=== PATIENT | male | born 1960 ===

== ENCOUNTER 2016-11-06 17:18 | Emergency (ER) | payer MEDICARE ==
[2016-11-06 17:18] VITALS: BMI 33.2
[2016-11-06 17:22] VITALS: BP 162/83; PULSE 59; RESP 20; TEMP 98.1; O2SAT 99
--- NOTE | 2016-11-06 18:33 | C.PDOC ---
History Of Present Illness 55 y/o male presents to the ED for evaluation of vague symptoms for 2 weeks, including nasal congestion, sore throat, and occasional nausea. Patient denies fevers, vomiting, or constipation. Note that the patient is on an extensive narcotics regimen. [facility], patient has received 11 prescriptions from 9 prescribers in the past year, mostly for Percocet. Time Seen by Provider: 11/06/16 18:21 Chief Complaint (Nursing): GI Problem History Per: Patient History/Exam Limitations: no limitations Onset/Duration Of Symptoms: Days (14), Persistent Current Symptoms Are (Timing): Still Present Location Of Pain: Throat Sick Contacts (Context): None Associated Symptoms: Sore Throat, Nasal Congestion, Nausea Ear Symptoms: Bilateral: None Recent travel outside of the [place]: No Past Medical History Reviewed: Historical Data, Nursing Documentation, Vital Signs Vital Signs: Last Vital Signs Temp 98.1 F 11/06/16 17:20 Pulse 59 L 11/06/16 17:20 Resp 20 11/06/16 17:20 BP 162/83 H 11/06/16 17:20 Pulse Ox 99 11/06/16 18:34 - Medical History PMH: Anxiety, Arthritis, Asthma, Atrial Fibrillation, Back Problems, CHF, COPD, Depression, HTN, Seizures (withdrawl seizures), TIA Surgical History: CABG, Cholecystectomy - [facility] Procedures LINEAR REP LID LACER (01/07/13) TETANUS TOXOID ADMINIST (01/07/13) Family History: States: Unknown Family Hx - Social History Hx Tobacco Use: No Hx Alcohol Use: Yes Hx Substance Use: No - Immunization History Hx Tetanus Toxoid Vaccination: Yes (last year) Hx Influenza Vaccination: Yes Hx Pneumococcal Vaccination: Yes Review Of Systems Except As Marked, All Systems Reviewed And Found Negative. Constitutional: Negative for: Fever ENT: Positive for: Nose Congestion, Throat Pain Gastrointestinal: Positive for: Nausea (occasional). Negative for: Vomiting, Constipation Physical Exam - Physical Exam Appears: Non-toxic, No Acute Distress Skin: Normal Color, Warm, Dry Head: Atraumatic, Normacephalic Eye(s): bilateral: Normal Inspection, PERRL Ear(s): Bilateral: Normal Nose: Normal Oral Mucosa: Moist Throat: Normal, No Erythema, No Exudate Neck: Normal ROM, Supple Chest: Symmetrical Cardiovascular: Rhythm Regular Respiratory: Normal Breath Sounds, No Rales, No Rhonchi, No Wheezing Gastrointestinal/Abdominal: Normal Exam, Soft, No Tenderness, Other (obese) Back: Normal Inspection, No CVA Tenderness Extremity: Normal ROM, No Swelling Neurological/Psych: Oriented x3, Normal Speech, Normal Cognition ED Course And Treatment O2 Sat by Pulse Oximetry: 99 (ra) Pulse Ox Interpretation: Normal Medical Decision Making Medical Decision Making: vague s/s of viral syndrome, but normal exam today Extensive percocet regimen, claims he has not run out of narcotic meds @ home, but has not taken any today. [employer] reviewed: 11 prescriptions from 9 prescribers in past year Pt defers w/u with informed consent. Disposition Doctor Will See Patient In The: Office Counseled Patient/Family Regarding: Studies Performed, Diagnosis - Disposition Referrals: [facility] [Outside] [facility] [Outside] Disposition: HOME/ ROUTINE Disposition Time: 18:33 Condition: GOOD Additional Instructions: continue normal diet and hold off on alcohol (especially since you are taking narcotic pain relievers) and follow-up in our outpatient Clinic as needed. Forms: General Discharge Instructions - Clinical Impression Clinical Impression: Not feeling great - Scribe Statement The provider has reviewed the documentation as recorded by the Scribe (Edwige Manzanares) Provider Attestation: All medical record entries made by the Scribe were at my direction and personally dictated by me. I have reviewed the chart and agree that the record accurately reflects my personal performance of the history, physical exam, medical decision making, and the department course for this patient. I have also personally directed, reviewed, and agree with the discharge instructions and disposition.
== END 2016-11-06 18:44 | disposition home or self-care (01) ==
LOC: C.ER 17:18
DX: B34.9 Viral infection, unspecified (principal); I11.0 Hypertensive heart disease with heart failure; I50.9 Heart failure, unspecified; F41.9 Anxiety disorder, unspecified

== ENCOUNTER 2016-12-16 17:29 | Emergency (ER) | payer MEDICARE ==
[2016-12-16 17:57] VITALS: BMI 31.4
[2016-12-16 18:03] VITALS: TEMP 98.2; O2SAT 98
[2016-12-16 19:12] LABS: URINE BILIRUBIN NEGATIVE (NEGATIVE); URINE BLOOD NEGATIVE (NEGATIVE); URINE COLOR Yellow (YELLOW); URINE GLUCOSE (UA) NORMAL (Normal); URINE KETONE NEGATIVE (NEGATIVE); URINE LEUKOCYTE ESTERASE NEG Leu/uL (Negative); URINE PROTEIN NEGATIVE (NEGATIVE); URINE UROBILINOGEN NORMAL mg/dL (0.2-1.0); WBC URINE < 1 /hpf (0-5)
--- NOTE | 2016-12-16 19:50 | C.PDOC ---
History Of Present Illness 56 y/o male presents to the ED with complains of chronic back pain exacerbation. Patient went to therapy and received epidural injection, trigger point injections and since yesterday, back pain radiates to right flank and groin. Pt had therapy today, was told he may have a muscle spasm. Pt also states urination has been more frequent. Denies fever, chills, weakness, numbness or any other complaints. Time Seen by Provider: 12/16/16 18:10 Chief Complaint (Nursing): Back Pain History Per: Patient History/Exam Limitations: no limitations Onset/Duration Of Symptoms: Hrs Current Symptoms Are (Timing): Still Present Quality Of Discomfort: "Pain" Severity: Moderate Previous Symptoms: Back Pain Associated Symptoms: None Recent travel outside of the [place]: No Past Medical History Reviewed: Historical Data, Nursing Documentation, Vital Signs Vital Signs: Last Vital Signs Temp 98.2 F 12/16/16 17:57 Pulse 85 12/16/16 20:41 Resp 18 12/16/16 20:41 BP 124/75 12/16/16 20:41 Pulse Ox 98 12/16/16 20:41 - Medical History PMH: Anxiety, Arthritis, Asthma, Atrial Fibrillation, Back Problems, CHF, COPD, Depression, HTN, Seizures (withdrawl seizures), TIA Surgical History: CABG, Cholecystectomy - [facility] Procedures LINEAR REP LID LACER (01/07/13) TETANUS TOXOID ADMINIST (01/07/13) Family History: States: Unknown Family Hx - Social History Hx Tobacco Use: No Hx Alcohol Use: Yes Hx Substance Use: No - Immunization History Hx Tetanus Toxoid Vaccination: Yes (last year) Hx Influenza Vaccination: Yes Hx Pneumococcal Vaccination: Yes Review Of Systems Except As Marked, All Systems Reviewed And Found Negative. Constitutional: Negative for: Fever, Chills Genitourinary: Positive for: Frequency Musculoskeletal: Positive for: Back Pain (radiating to right flank and groin) Neurological: Negative for: Weakness, Numbness Physical Exam - Physical Exam Appears: Non-toxic, No Acute Distress Skin: Warm, Dry, No Rash Head: Atraumatic, Normacephalic Chest: Symmetrical Cardiovascular: Rhythm Regular, No Murmur Respiratory: Normal Breath Sounds, No Rales, No Rhonchi, No Wheezing Gastrointestinal/Abdominal: Soft, No Tenderness, No Distention Back: Other (right flank tenderness) Extremity: Bilateral: Atraumatic Neurological/Psych: Oriented x3, Normal Speech, Normal Cognition, Normal Motor, Normal Sensation ED Course And Treatment O2 Sat by Pulse Oximetry: 98 (room air) Pulse Ox Interpretation: Normal - CT Scan/US CT abdomen Other Rad Studies (CT/US): Read By Radiologist, Radiology Report Reviewed CT/US Interpretation: EXAM: CT Abdomen and Pelvis Without Intravenous Contrast. CLINICAL HISTORY: 56 years old, male; Pain; Abdominal pain; Flank; Right lower quadrant (rlq); Additional info: Right. flank pain. TECHNIQUE: Axial computed tomography images of the abdomen and pelvis without intravenous contrast. This. CT exam was performed using one or more of the following dose reduction techniques: automated. exposure control, adjustment of the mA and/or kV according to patient size, and/or use of iterative. reconstruction technique. Coronal and sagittal reformatted images were created and reviewed. EXAM DATE/TIME: Exam ordered 12/16/2016 6:57 PM. COMPARISON: No relevant prior studies available. FINDINGS: Lower thorax: There is a small hiatal hernia. ABDOMEN: Liver: Unremarkable. Gallbladder and bile ducts: Surgical clips are seen in the gallbladder fossa. The gallbladder is. absent. No ductal dilation. Pancreas: Unremarkable. No ductal dilation. Spleen: Unremarkable. No splenomegaly. Adrenals: Unremarkable. No mass. Kidneys and ureters: Unremarkable. No obstructing stones. No hydronephrosis. Stomach and bowel: There are scattered colonic diverticula. No obstruction. No mucosal. thickening. Appendix: No findings to suggest acute appendicitis. PELVIS: Bladder: There is mild bladder wall thickening. No stones. Reproductive: The prostate measures 3.4 x 4 x 3.6 cm. ABDOMEN and PELVIS: Intraperitoneal space : Unremarkable. No free air. No significant fluid collection. Bones/joints: There is a healed rib fracture of the left posterior 10th rib. There is a grade 1. spondylolisthesis at L5-S1 with 7 mm of retrolisthesis of S1 with respect to L5. There is narrowing of. the intervening disc space. Vacuum disc phenomenon is noted at L5-S1. There is partial fusion of the. L34 vertebral bodies Mild anterior compression deformity is noted at T12. 3 healed fractures are. noted of the right ninth, 10th and 12th ribs No dislocation. Soft tissues : Unremarkable. Vasculature: Unremarkable. No abdominal aortic aneurysm. Lymph nodes: Unremarkable. No enlarged lymph nodes. IMPRESSION: 1. No acute findings. 2. Small hiatal hernia. 3. Scattered colonic diverticula. 4. Bilateral healed rib fractures. 5. Grade 1 spondylolisthesis at L5-S1. Thank you for allowing us to participate in the care of your patient. Dictated and Authenticated by: Jenny Pereira MD. 12/16/2016 8:05 PM Eastern Time ([place] & [place]) Progress Note: Plan: CT abd, UA, toradol, valium. On reassessment, patient is resting comfortably, with improvement of back pain. Patient remains afebrile, with no bony tenderness, extremity numbness or weakness, or abdominal pain. Patient is ambulatory in the emergency department with no signs of discomfort. Patient was advised to follow up with physician/clinic in 1-2 days. Disposition - Disposition Disposition: HOME/ ROUTINE Disposition Time: 20:34 Condition: STABLE Additional Instructions: Follow up with your PMD and sales recruitment specialist within 1-2 days. Return to ED if feel worse. Prescriptions: Lidocaine 5% [Lidoderm] 1 patch TP DAILY #30 patch diaZEpam [Valium] 2 mg PO TID #15 tab Instructions: Flank Pain (ED) - Clinical Impression Clinical Impression: Flank pain - PA / [employer] SUPERVISOR / Resident Statement MD/DO has reviewed & agrees with the documentation as recorded. - Scribe Statement The provider has reviewed the documentation as recorded by the Raulito Knapp All medical record entries made by the Raulito were at my direction and personally dictated by me. I have reviewed the chart and agree that the record accurately reflects my personal performance of the history, physical exam, medical decision making, and the department course for this patient. I have also personally directed, reviewed, and agree with the discharge instructions and disposition.
[2016-12-16 20:41] VITALS: BP 124/75; PULSE 85; RESP 18
--- NOTE | 2016-12-17 10:53 | CT ---
PROCEDURE: CT Abdomen and Pelvis without intravenous or oral contrast HISTORY: right flank pain COMPARISON: None. TECHNIQUE: Technique Contiguous axial images of the abdomen and pelvis without intravenous or oral contrast. Radiation dose: Total exam DLP = 513.04 mGy-cm. This CT exam was performed using one or more of the following dose reduction techniques: Automated exposure control, adjustment of the mA and/or kV according to patient size, and/or use of iterative reconstruction technique. FINDINGS: LOWER THORAX: Unremarkable. LIVER: Unremarkable. GALLBLADDER AND BILE DUCTS: Status post cholecystectomy. No abnormality is seen in the gallbladder fossa. PANCREAS: Unremarkable. No ductal dilatation. SPLEEN: Unremarkable. No splenomegaly. ADRENALS: Unremarkable. KIDNEYS AND URETERS: Unremarkable. No hydronephrosis. BLADDER: Diffuse bladder wall thickening and and specific finding. Cystitis can assume this appearance. REPRODUCTIVE: Unremarkable. APPENDIX: Unremarkable. Normal appendix. STOMACH AND BOWEL: Unremarkable. No obstruction. No gross mural thickening. PERITONEUM: Unremarkable. No significant fluid collection. No free air. LYMPH NODES: Unremarkable. No enlarged lymph nodes. VASCULATURE: Unremarkable. No aortic aneurysm. BONES: Grade 1 anterolisthesis L5-S1. Old healed posterior right rib fractures. OTHER FINDINGS: None . IMPRESSION: No evidence of renal calculus disease or obstructive uropathy. Diffuse bladder wall thickening. Additional benign and/or incidental findings described above. Concordant results (preliminary interpretation) provided by [facility]. Procedure Completed: 19:36. Preliminary ([facility]) Report: Dictated and Authenticated: 20:05. Final Interpretation: 07:28. December 16, 2016.
== END 2016-12-16 20:42 | disposition home or self-care (01) ==
LOC: C.ER 17:29
DX: R10.9 Unspecified abdominal pain (principal); I48.91 Unspecified atrial fibrillation; I10 Essential (primary) hypertension
CPT/HCPCS: 74176; 81001; 96372; 99284; J1885

== ENCOUNTER 2017-01-19 20:31 | Emergency (ER) | payer MEDICARE ==
[2017-01-19 20:31] VITALS: BMI 31.4
--- NOTE | 2017-01-19 23:40 | C.PDOC ---
History Of Present Illness Pt was BIBEMs due to public alcohol intoxication. Time Seen by Provider: 01/19/17 21:00 Chief Complaint (Nursing): Substance Abuse History Per: Patient, EMS History/Exam Limitations: intoxication Onset/Duration Of Symptoms: Unknown (tonight) Current Symptoms Are (Timing): Still Present Suicide/Self Injury Attempted (Context): None Modifying Factor(s): Alcohol Severity: Severe Associated Symptoms: denies: Suicidal Thoughts, Suicidal Plan Additional History Per: Prior Records Past Medical History Reviewed: Historical Data, Nursing Documentation, Vital Signs Vital Signs: Last Vital Signs Temp 97.8 F 01/20/17 00:30 Pulse 103 H 01/20/17 00:30 Resp 20 01/20/17 00:30 BP 143/84 01/20/17 00:30 Pulse Ox 95 01/20/17 00:30 - Medical History PMH: Anxiety, Arthritis, Asthma, Atrial Fibrillation, Back Problems, CHF, COPD, Depression, HTN, Seizures (withdrawl seizures), TIA Surgical History: Cholecystectomy - [facility] Procedures LINEAR REP LID LACER (01/07/13) TETANUS TOXOID ADMINIST (01/07/13) Family History: States: Unknown Family Hx - Social History Hx Tobacco Use: No Hx Alcohol Use: Yes Hx Substance Use: No - Immunization History Hx Tetanus Toxoid Vaccination: Yes (last year) Hx Influenza Vaccination: Yes Hx Pneumococcal Vaccination: Yes Review Of Systems Review Of Systems: ROS cannot be obtained secondary to pt's inabilty to answer questions. Physical Exam - Physical Exam Appears: Agitated, Other (AOB, intoxicated) Skin: Normal Color, Warm, Dry, No Rash Head: No Swelling Eye(s): bilateral: PERRL, EOMI Neck: Normal ROM, No Midline Cervical Tenderness, No Step Off Deformity, Supple Cardiovascular: Rhythm Regular Respiratory: Normal Breath Sounds, No Accessory Muscle Use Gastrointestinal/Abdominal: Soft, No Tenderness Extremity: Normal ROM, No Deformity Neurological/Psych: Inappropriate Response To Command, Other (Moving all extremities) Gait: Unable To Assess ED Course And Treatment O2 Sat by Pulse Oximetry: 100 Pulse Ox Interpretation: Normal Disposition - Disposition Disposition Time: 01:00 Condition: STABLE - Clinical Impression Clinical Impression: Alcohol intoxication Physician Patient Turnover Patient Signed Over To: Earlene Reveles Handoff Comments: to reassess pt once sober.
[2017-01-20 04:43] VITALS: BP 137/86; PULSE 97; RESP 18; TEMP 98; O2SAT 96
== END 2017-01-20 04:43 | disposition home or self-care (01) ==
LOC: C.ER 20:31
DX: F10.129 Alcohol abuse with intoxication, unspecified (principal)

== ENCOUNTER 2018-07-16 00:37 | Emergency (ER) | payer MEDICARE ==
[2018-07-16 00:38] VITALS: BMI 31.4
[2018-07-16] MEDS ORDERED: Epinephrine /Lidocaine HCL 1:100,000/2% 30 ml INJ STA (00:58)
[2018-07-16] MEDS ORDERED: Tdap Vaccine 0.5 ml Vial (10-64 yrs) IM ONE (00:58)
[2018-07-16] MEDS ORDERED: Tetanus/Diphtheria Toxoids 0.5 ml Syringe IM ONE (01:05)
--- NOTE | 2018-07-16 02:15 | CP.PCM.PN ---
Subjective - Date & Time of Evaluation Date of Evaluation: 07/16/18 Time of Evaluation: 01:45 - Subjective Subjective: Procedure Note, see below. Objective - Vital Signs/Intake and Output Vital Signs (last 24 hours): Temp Pulse Resp BP Pulse Ox 98.3 F 107 H 12 160/88 H 99 07/16/18 00:39 07/16/18 00:39 07/16/18 00:39 07/16/18 00:39 07/16/18 00:39 Procedure: Wound Repair - Time Performed Time Performed: 01:50 - Time Out Time Out: Side verified, Patient ID confirmed, Sterile procedures obs. - Procedure Procedure: Wound Repair: 2cm L eyebrow laceration, 3cm chin laceration - Consent Obtained Consent obtained: Verbal - Performed by Performed by: Mid-level Provider - Indications Indication(s):: Laceration - Location Location:: Left (eyebrow), Chin (medial, 1 cm below lip) Shape:: Linear (both) Dimensions Length cm: 2cm L eyebrow laceration, 3cm chin laceration Dimensions width cm: 2mm Depth:: Epidermis - Anesthetic Technique Anesthetic Technique: Local Local/Regional Anesthetic:: Lidocaine 1% w/epi - Debris Debris:: None - Irrigated Irrigated with ml of normal saline: 30 - Complexity Complexity:: Simple (one layer) - Wound repair method Sutures:: # (2 in eyebrow, 3 in chin), Size (5-0), Type (Ethilon), Technique (simple interrupted) - Complications Complications: None - Patient tolerated procedure Patient Tolerated Procedure:: Well
[2018-07-16 03:27] VITALS: BP 128/75; PULSE 114; RESP 20; TEMP 98.5; O2SAT 97
--- NOTE | 2018-07-16 04:31 | C.PDOC ---
History Of Present Illness 57 y/o male pt presents to the ER c/o fall. Pt reports he was drinking alcohol then fell forward and landed on his face. Unknown LOC and pt has no other physical complaints. Pt notes he has missing teeth prior to the fall. - HPI Time Seen by Provider: 07/16/18 00:49 Chief Complaint (Nursing): Trauma History Per: Patient History/Exam Limitations: no limitations Onset/Duration Of Symptoms: Hrs Location Of Injury: Posterior: Face Past Medical History Reviewed: Historical Data, Nursing Documentation, Vital Signs Vital Signs: Last Vital Signs Temp 98.5 F 07/16/18 03:26 Pulse 114 H 07/16/18 03:26 Resp 20 07/16/18 03:26 BP 128/75 07/16/18 03:26 Pulse Ox 97 07/16/18 03:26 - Medical History PMH: Anxiety, Arthritis, Asthma, Atrial Fibrillation, Back Problems, CHF, COPD, Depression, HTN, Seizures (withdrawl seizures), TIA Surgical History: Cholecystectomy - [facility] Procedures LINEAR REP LID LACER (01/07/13) TETANUS TOXOID ADMINIST (01/07/13) Family History: States: Unknown Family Hx - Social History Hx Tobacco Use: No Hx Alcohol Use: Yes Hx Substance Use: No - Immunization History Hx Tetanus Toxoid Vaccination: Yes (last year) Hx Influenza Vaccination: Yes Hx Pneumococcal Vaccination: Yes Review Of Systems Except As Marked, All Systems Reviewed And Found Negative. Constitutional: Negative for: Fever, Chills Cardiovascular: Negative for: Chest Pain, Palpitations Respiratory: Negative for: Cough Gastrointestinal: Negative for: Nausea Genitourinary: Negative for: Dysuria Musculoskeletal: Negative for: Neck Pain, Shoulder Pain, Back Pain Skin: Positive for: Other (face injury ) Neurological: Positive for: Other (unknown LOC ). Negative for: Weakness, Numbness Physical Exam - Physical Exam Appears: Non-toxic, No Acute Distress Skin: Warm, Dry Head: Normacephalic, No Tenderness, No Swelling, No Abrasion, Laceration (1 cm on left eyes brow; 1.5 cm on chin ), Other (no active bleeding) Eye(s): left: Other (swelling) Nose: Normal Oral Mucosa: Moist Throat: Normal Neck: Normal ROM, Supple Chest: Symmetrical Cardiovascular: Rhythm Regular Respiratory: Normal Breath Sounds Back: No CVA Tenderness, No Other (neck tenderness) Extremity: Normal ROM (x4) Neurological/Psych: Oriented x3, Normal Speech ED Course And Treatment O2 Sat by Pulse Oximetry: 97 (RA) Pulse Ox Interpretation: Normal Medical Decision Making Medical Decision Making: Impression: fall Plans: -- CT head -- CT orbitals -- Glucose POC -- tetanus -- epinephrine CT orbital facial results: Name: SHRUTHI ANDERSON Exam Date: Jul 16, 2018 1:15:52 AM EST Modality Type: CT\SR Description: CT - FACIAL BONES, CT - ORBITS Gender: M Laterality: Not applicable : 56 Referring Physician: Marlo Li () CT scan of the facial bones. Indication: Fall. Technique: Axial CT scan images without contrast. Reformatted coronal and sagittal images. Findings: Left preseptal soft tissue hematoma. Mild chronic mucosal inflammatory changes of the maxillary sinuses and ethmoid air cells. Normal bilateral orbital contents. Normal bilateral medial and inferior orbital cabrera. Normal bilateral maxillary bones. Normal bilateral frontozygomatic arches. Normal bilateral zygomatic temporal arches. Normal nasal bones. Normal anterior nasal spine. There is no demonstrated fracture. Normal visualized frontal and sphenoid sinuses. Impression: No CT evidence of acute bone pathology. Left preseptal soft tissue hematoma. Mild chronic mucosal inflammatory changes of the maxillary sinuses and ethmoid air cells. Thank you for your kind referral of this patient. Electronically signed on Jul 16, 2018 2:25:36 AM EST by: La Nena Villalobos M.D., Certified by VICKI, MSK, Neuroradiology CT head results: Name: SHRUTHI ANDERSON Exam Date: Jul 16, 2018 1:13:51 AM EST Modality Type: CT\SR Description: CT - BRAIN Gender: M Laterality: Not applicable : 56 Referring Physician: Marlo Li () CT SCAN OF THE BRAIN WITHOUT IV CONTRAST CLINICAL INDICATION: Status post fall. TECHNIQUE: Axial and reformatted sagittal and coronal images of the brain obtained without IV contrast administration. Normal size of the ventricles and extra-axial spaces for the patient's age. Normal white matter tracts of the supratentorial brain. Normal basal ganglia and thalami. Normal brainstem. Normal cerebellum. There is no demonstrated extra-axial, intraparenchymal, or intraventricular hemorrhage. There are no findings of an acute ischemic infarction. Normal calvarium. There is no demonstrated fracture. Left preseptal soft tissue hematoma. Normal visualized paranasal sinuses. IMPRESSION: Normal unenhanced CT scan of the brain. Electronically signed on Jul 16, 2018 1:58:50 AM EST by: La Nena Villalobos M.D., Certified by ABR, MSK, Neuroradiology Disposition - Disposition Referrals: [facility] [Outside] [facility] [Outside] Disposition: HOME/ ROUTINE Disposition Time: 02:25 Condition: GOOD Additional Instructions: SHRUTHI ANDERSON, thank you for letting us take care of you today. The emergency medical care you received today was directed at your acute symptoms. If you were prescribed any medication, please fill it and take as directed. It may take several days for your symptoms to resolve. Return to the Emergency Department if your symptoms worsen, do not improve, or if you have any other problems. Please contact your doctor or call one of the physicians/clinics you have been referred to that are listed on the Patient Visit Information form that is included in your discharge packet. Bring any paperwork you were given at discharge with you along with any medications you are taking to your follow up visit. Our treatment cannot replace ongoing medical care by a primary care provider outside of the emergency department. Thank you for allowing the [facility] team to be part of your care today. Follow up in the clinic, your primary care doctor or the emergency room in 5-7 days for your stitches to be removed. Instructions: Alcohol Use - When Is Drinking a Problem?, Laceration Repair With Stitches (DC) Forms: [employer] (French) - Clinical Impression Clinical Impression: Alcohol abuse, Facial laceration - Scribe Statement The provider has reviewed the documentation as recorded by the Scribe Rodriguez Do Provider Attestation: All medical record entries made by the Scribe were at my direction and personally dictated by me. I have reviewed the chart and agree that the record accurately reflects my personal performance of the history, physical exam, medical decision making, and the department course for this patient. I have also personally directed, reviewed, and agree with the discharge instructions and disposition.
--- NOTE | 2018-07-16 10:25 | CT ---
Date of service: 07/16/2018 PROCEDURE: CT HEAD WITHOUT CONTRAST. HISTORY: s/p fall r/o fx and ICH COMPARISON: 01/30/2016 TECHNIQUE: Axial computed tomography images were obtained through the head/brain without intravenous contrast. Radiation dose: Total exam DLP = 948.32 mGy-cm. This CT exam was performed using one or more of the following dose reduction techniques: Automated exposure control, adjustment of the mA and/or kV according to patient size, and/or use of iterative reconstruction technique. FINDINGS: HEMORRHAGE: No intracranial hemorrhage. BRAIN: No mass effect or edema. No atrophy or chronic microvascular ischemic changes. VENTRICLES: Unremarkable. No hydrocephalus. CALVARIUM: No fracture. Left frontal scalp hematoma extending to left superior palpebrum. No intraorbital hemorrhage appreciated. PARANASAL SINUSES: Chronic ethmoid and bilateral maxillary sinusitis. MASTOID AIR CELLS: Unremarkable as visualized. No inflammatory changes. OTHER FINDINGS: None. IMPRESSION: Left frontal scalp hematoma extending to left superior palpebrum. No intracranial hemorrhage. Otherwise unremarkable. The preliminary findings for this examination were reported by [facility] Radiology at 1:58 a.m. on 07/16/2018. There is concurrence of this report with the preliminary findings.
--- NOTE | 2018-07-16 10:33 | CT ---
Date of service: 07/16/2018 PROCEDURE: CT MAXILLOFACIAL BONES WITHOUT CONTRAST HISTORY: s/p fall - r/o fx COMPARISON: None available. TECHNIQUE: Contiguous axial CT images of the maxillofacial bones were obtained. Coronal and sagittal reformats were generated. Radiation dose: Total exam DLP = 760.49 mGy-cm. This CT exam was performed using one or more of the following dose reduction techniques: Automated exposure control, adjustment of the mA and/or kV according to patient size, and/or use of iterative reconstruction technique. FINDINGS: NASAL BONES: Unremarkable. ORBITS: No orbital fracture. Orbital floors and lamina papyracea are intact. There is left frontal scalp hematoma extending into the left superior palpebrum. All swelling is pre septal. No intraorbital hemorrhage. The globes are rounded and symmetric. PARANASAL SINUSES/ MASTOIDS: Chronic ethmoid and bilateral maxillary sinusitis. MAXILLA: Unremarkable. MANDIBLE/ TEMPOROMANDIBULAR JOINTS: Unremarkable. SKULL BASE: Unremarkable. TEMPORAL BONES: Middle ears and mastoid grossly unremarkable. OTHER FINDINGS: None. IMPRESSION: Left frontal scalp hematoma with extension to left superior palpebrum. No intra or hemorrhage. Chronic paranasal sinusitis. No maxillofacial fracture. The preliminary findings for this examination were reported by [facility] Rad[facility] at 2:25 a.m. on 07/16/2018. There is concurrence of this report with the preliminary findings.
== END 2018-07-16 03:42 | disposition home or self-care (01) ==
LOC: C.ER 00:37
DX: F10.10 Alcohol abuse, uncomplicated (principal); S01.81XA Laceration without foreign body of other part of head, initial encounter; W19.XXXA Unspecified fall, initial encounter; I48.91 Unspecified atrial fibrillation; I50.9 Heart failure, unspecified; I10 Essential (primary) hypertension; Z23 Encounter for immunization

== ENCOUNTER 2018-07-22 13:09 | Emergency (ER) | payer MEDICARE ==
[2018-07-22 13:09] VITALS: BMI 31.4
[2018-07-22 13:28] VITALS: BP 131/75; PULSE 79; RESP 18; TEMP 98.5; O2SAT 95
--- NOTE | 2018-07-22 15:03 | C.PDOC ---
History Of Present Illness 57 year old male patient presents to the emergency room for a suture removal for left eyebrow and chin. Patient denies any pain or drainage. Time Seen by Provider: 07/22/18 13:35 Chief Complaint (Nursing): Suture/Staple Removal History Per: Patient History/Exam Limitations: no limitations Onset/Duration Of Symptoms: Days Ago Current Symptoms Are (Timing): Better Past Medical History Reviewed: Historical Data, Nursing Documentation, Vital Signs Vital Signs: Last Vital Signs Temp 98.5 F 07/22/18 13:24 Pulse 79 07/22/18 13:24 Resp 18 07/22/18 13:24 BP 131/75 07/22/18 13:24 Pulse Ox 95 07/22/18 13:24 - Medical History PMH: Anxiety, Arthritis, Asthma, Atrial Fibrillation, Back Problems, CHF, COPD, Depression, HTN, Seizures (withdrawl seizures), TIA Surgical History: Cholecystectomy - [facility] Procedures LINEAR REP LID LACER (01/07/13) TETANUS TOXOID ADMINIST (01/07/13) Family History: States: Unknown Family Hx - Social History Hx Tobacco Use: No Hx Alcohol Use: Yes Hx Substance Use: No - Immunization History Hx Tetanus Toxoid Vaccination: Yes Hx Influenza Vaccination: Yes Hx Pneumococcal Vaccination: Yes Review Of Systems Except As Marked, All Systems Reviewed And Found Negative. Constitutional: Positive for: Other (suture removal ) Physical Exam - Physical Exam Appears: Non-toxic, No Acute Distress Skin: Warm, Dry Head: Normacephalic, Other (well healed wound of left eye brow and chin) Neurological/Psych: Oriented x3, Normal Speech, Normal Cognition, Normal Motor, Normal Sensation ED Course And Treatment O2 Sat by Pulse Oximetry: 95 (RA) Pulse Ox Interpretation: Normal Medical Decision Making Medical Decision Making: Sutures were removed from left eyebrow and underneath lip by EDILSON Lopes with no complications. Patient tolerating well. Incision and drainages using 11 blade, but no purulent material was obtained. Disposition - Disposition Referrals: [facility] [Outside] Disposition: HOME/ ROUTINE Disposition Time: 15:02 Condition: STABLE Additional Instructions: Return if worsened. Instructions: Stitches Removal Forms: [employer] Connect (Latvian) - Clinical Impression Clinical Impression: Removal of suture - PA / FOOD MANAGER / Resident Statement MD/DO has reviewed & agrees with the documentation as recorded. - Scribe Statement The provider has reviewed the documentation as recorded by the Scribe Rodriguez Do All medical record entries made by the Scribe were at my direction and personally dictated by me. I have reviewed the chart and agree that the record accurately reflects my personal performance of the history, physical exam, medical decision making, and the department course for this patient. I have also personally directed, reviewed, and agree with the discharge instructions and disposition.
== END 2018-07-22 15:04 | disposition home or self-care (01) ==
LOC: C.ER 13:09
DX: Z48.02 Encounter for removal of sutures (principal)

== ENCOUNTER 2018-08-20 11:50 | Outpatient (CLI) | payer MEDICARE | END 2018-08-20 11:51 | disposition home or self-care (01) | LOC: C.MRIC 11:50 | DX: M54.12 Radiculopathy, cervical region (principal) ==

== ENCOUNTER 2018-08-31 15:50 | Outpatient (CLI) | payer MEDICARE | END 2018-08-31 15:51 | disposition home or self-care (01) | LOC: C.MRIC 15:50 | DX: M23.90 Unspecified internal derangement of unspecified knee (principal) ==

== ENCOUNTER 2018-09-01 16:01 | Outpatient (CLI) | payer MEDICARE | END 2018-09-01 16:02 | disposition home or self-care (01) | LOC: C.MRIC 16:01 ==

== ENCOUNTER 2018-10-09 23:18 | Emergency (ER) | payer MEDICARE ==
[2018-10-09 23:19] VITALS: BMI 31.4
--- NOTE | 2018-10-09 23:38 | C.PDOC ---
History Of Present Illness The patient presents to the ED with acute alcohol intoxication. Patient states his has and admits to having a few drinks earlier today. Patient denies suicidal/homicidal ideation and offers no physical complaints at this time. Time Seen by Provider: 10/09/18 23:36 Chief Complaint (Nursing): Medical Clearance History Per: Patient History/Exam Limitations: no limitations Onset/Duration Of Symptoms: Hrs Current Symptoms Are (Timing): Still Present Severity: None Pain Scale Rating Of: 0 Recent travel outside of the [place]: No Additional History Per: Patient Past Medical History Reviewed: Historical Data, Nursing Documentation, Vital Signs Vital Signs: Last Vital Signs Temp 98.1 F 10/09/18 23:23 Pulse 79 10/09/18 23:23 Resp 18 10/09/18 23:23 BP 155/82 H 10/09/18 23:23 Pulse Ox 96 10/09/18 23:23 - Medical History PMH: Anxiety, Arthritis, Asthma, Atrial Fibrillation, Back Problems, CHF, COPD, Depression, HTN, Seizures (withdrawl seizures), TIA Denies: Chronic Kidney Disease Surgical History: Cholecystectomy - [facility] Procedures LINEAR REP LID LACER (01/07/13) TETANUS TOXOID ADMINIST (01/07/13) Family History: States: Unknown Family Hx - Social History Hx Tobacco Use: No Hx Alcohol Use: Yes Hx Substance Use: No - Immunization History Hx Tetanus Toxoid Vaccination: Yes Hx Influenza Vaccination: Yes Hx Pneumococcal Vaccination: Yes Review Of Systems Constitutional: Negative for: Fever, Chills Cardiovascular: Negative for: Chest Pain, Palpitations Respiratory: Negative for: Cough, Shortness of Breath Gastrointestinal: Negative for: Nausea, Vomiting, Abdominal Pain Skin: Negative for: Rash, Lesions, Jaundice, Bruising Psych: Positive for: Other (alcohol intoxication ). Negative for: Suicidal ideation Physical Exam - Physical Exam Appears: Non-toxic, No Acute Distress Skin: Warm, Dry Head: Normacephalic Oral Mucosa: Moist Neck: Supple Chest: Symmetrical, No Deformity Cardiovascular: Rhythm Regular Respiratory: No Accessory Muscle Use Extremity: Normal ROM Neurological/Psych: Other (arousable to touch and verbal stimuli ) Gait: Unsteady ED Course And Treatment O2 Sat by Pulse Oximetry: 96 Pulse Ox Interpretation: Normal Reevaluation Time: 03:33 Reassessment Condition: Improved Disposition Counseled Patient/Family Regarding: Studies Performed, Diagnosis, Need For Followup - Disposition Referrals: [facility] [Outside] Disposition: HOME/ ROUTINE Disposition Time: 23:37 Condition: FAIR Instructions: Alcohol Use - When Is Drinking a Problem? Forms: [employer] (Kuwaiti) - Clinical Impression Clinical Impression: Medical assessment, Alcohol intoxication - Scribe Statement The provider has reviewed the documentation as recorded by the Scribe (Dee Oshea) Provider Attestation: All medical record entries made by the Scribe were at my direction and personally dictated by me. I have reviewed the chart and agree that the record accurately reflects my personal performance of the history, physical exam, medical decision making, and the department course for this patient. I have also personally directed, reviewed, and agree with the discharge instructions and disposition.
[2018-10-10 03:34] VITALS: BP 132/71; PULSE 84; RESP 11; TEMP 97.9; O2SAT 97
== END 2018-10-10 03:40 | disposition home or self-care (01) ==
LOC: C.ER 23:18
DX: F10.129 Alcohol abuse with intoxication, unspecified (principal); Y90.9 Presence of alcohol in blood, level not specified

== ENCOUNTER 2018-11-04 11:01 | Outpatient (CLI) | payer MEDICARE | END 2018-11-04 11:02 | disposition home or self-care (01) | LOC: C.LAB 11:01 | DX: H51.11 Convergence insufficiency (principal); D64.9 Anemia, unspecified ==

== ENCOUNTER 2018-11-17 12:53 | Outpatient (CLI) | payer MEDICARE | END 2018-11-17 12:54 | disposition home or self-care (01) | LOC: C.RADIC 12:53 ==

== ENCOUNTER → 2018-11-29 | Outpatient (CLI) | payer MEDICARE | LOC: C.USIC 09:42 ==

== ENCOUNTER 2018-12-12 16:01 | Emergency (ER) | payer MEDICARE ==
[2018-12-12 16:28] VITALS: BMI 26.1
[2018-12-12 16:32] VITALS: BP 151/89; PULSE 98; RESP 18; TEMP 99.4; O2SAT 98
--- NOTE | 2018-12-12 17:01 | C.PDOC ---
History Of Present Illness 58-year-old male, undomiciled, presents to the emergency department with complaints of bilateral swelling to his ankles for the last two weeks. Patient states that he follows up with his doctor for pain management and receives Percocets, Oxycodone and injections to leg for the chronic pain. Patient states that now his ankles are swollen but he is not requesting pain meds at this time. Patient states that he has no PMD. Patient reports walking a lot and sometimes sleeping sitting up. Patient qualifies his pain as 4 out of 10 in severity radiating from his calf down to his ankles bilaterally. Patient states that he is using a cream for foot fungus. Time Seen by Provider: 12/12/18 16:34 Chief Complaint (Nursing): Lower Extremity Problem/Injury History Per: Patient History/Exam Limitations: no limitations Onset/Duration Of Symptoms: Hrs Current Symptoms Are (Timing): Still Present - Ankle/Foot Description Of Injury: Other (swelling) Past Medical History Reviewed: Historical Data, Nursing Documentation, Vital Signs Vital Signs: Last Vital Signs Temp 99.4 F 12/12/18 16:28 Pulse 98 H 12/12/18 16:28 Resp 18 12/12/18 16:28 BP 151/89 H 12/12/18 16:28 Pulse Ox 98 12/12/18 16:28 Primary Care Provider: Selina Darby - Medical History PMH: Anxiety, Arthritis, Asthma, Atrial Fibrillation, Back Problems, CHF, COPD, Depression, HTN, Seizures (withdrawl seizures), TIA Denies: Chronic Kidney Disease Surgical History: Cholecystectomy - [facility] Procedures LINEAR REP LID LACER (01/07/13) TETANUS TOXOID ADMINIST (01/07/13) Family History: States: No Known Family Hx - Social History Hx Tobacco Use: No Hx Alcohol Use: Yes Hx Substance Use: No - Immunization History Hx Tetanus Toxoid Vaccination: Yes Hx Influenza Vaccination: Yes (2018) Hx Pneumococcal Vaccination: No Review Of Systems Except As Marked, All Systems Reviewed And Found Negative. Constitutional: Negative for: Fever, Chills Cardiovascular: Negative for: Chest Pain Respiratory: Negative for: Cough, Shortness of Breath Gastrointestinal: Negative for: Nausea, Vomiting, Diarrhea Musculoskeletal: Positive for: Foot Pain (b/l ankle swelling) Physical Exam - Physical Exam Appears: Non-toxic, No Acute Distress Skin: Normal Color, Warm, Dry, Other (flush, sunburned) Head: Atraumatic, Normacephalic Eye(s): bilateral: Normal Inspection, PERRL, EOMI Oral Mucosa: Moist Neck: Normal, Supple Chest: Symmetrical, No Tenderness Cardiovascular: Rhythm Regular, No Murmur Respiratory: Normal Breath Sounds, No Rales, No Rhonchi, No Wheezing Gastrointestinal/Abdominal: Soft, No Tenderness, No Guarding, No Rebound Extremity: Tenderness (to b/l lower extremities), No Calf Tenderness (swelling), Swelling (b/l pitting edema from shins down to ankles), Other (erythema and scaling to the feet) Neurological/Psych: Oriented x3, Normal Speech, Normal Cognition ED Course And Treatment O2 Sat by Pulse Oximetry: 98 (RA) Pulse Ox Interpretation: Normal Medical Decision Making Medical Decision Making: Patient recommended to f/u in clinic, and to get his feet evaluated. Disposition - Disposition Referrals: [facility] [Outside] Disposition: HOME/ ROUTINE Disposition Time: 17:00 Condition: STABLE Instructions: Dependent Edema (DC) Forms: [facility] (Dominican), General Discharge Instructions - POA Present On Arrival: None - Clinical Impression Clinical Impression: Edema, pitting - Scribe Statement The provider has reviewed the documentation as recorded by the Scribe (Ricardo Jacob) Provider Attestation: All medical record entries made by the Scribe were at my direction and personally dictated by me. I have reviewed the chart and agree that the record accurately reflects my personal performance of the history, physical exam, medical decision making, and the department course for this patient. I have also personally directed, reviewed, and agree with the discharge instructions and disposition.
== END 2018-12-12 17:21 | disposition home or self-care (01) ==
LOC: C.ER 16:01
DX: R60.0 Localized edema (principal)

== ENCOUNTER 2018-12-15 12:21 | Outpatient (CLI) | payer MEDICARE | END 2018-12-15 12:22 | disposition home or self-care (01) | LOC: C.LAB 12:21 | DX: R10.84 Generalized abdominal pain (principal) ==